=== PATIENT | male | born 1970 | race American Indian/Alaskan Native ===

== ENCOUNTER 2025-02-09 05:59 | Day surgery (SDC) | payer BC, OTHER ==
[2025-02-09] MEDS ORDERED: Lactated Ringers 1,000 ML IV ONE (06:00)
[2025-02-09] MEDS ORDERED: Propofol 200 MG/20 ML SDV IV ONE (06:00)
[2025-02-09] MEDS: Lactated Ringers 1,000 ML IV SCH (06:31)
[2025-02-09] MEDS ORDERED: Propofol 200 MG/20 ML SDV ONE (09:01)
== END 2025-02-09 08:43 | disposition home or self-care (01) ==
LOC: DL.ENDO 05:59
PROVIDERS: ATTEND Internal Medicine Gastroenterology
DX: D17.5 Benign lipomatous neoplasm of intra-abdominal organs (principal); K63.89 Other specified diseases of intestine; E66.09 Other obesity due to excess calories; E78.5 Hyperlipidemia, unspecified; I10 Essential (primary) hypertension; Z68.34 Body mass index [BMI] 34.0-34.9, adult; Z88.0 Allergy status to penicillin; Z88.8 Allergy status to other drugs, medicaments and biological substances; Z91.030 Bee allergy status; Z79.899 Other long term (current) drug therapy
CPT/HCPCS: 45380; J2704; J7120